=== PATIENT | male | born 1980 | race African-American/Black ===

== ENCOUNTER 2016-12-16 23:06 | Emergency (ER) | payer SELFPAY ==
--- NOTE | 2016-12-16 23:33 | ER Document Report ---
ED Extremity Problem, Lower - General Chief Complaint: Foot Injury Stated Complaint: RIGHT FOOT PAIN Time Seen by Provider: 12/16/16 23:32 Notes: The patient is a 36-year-old male who was kicking a punching bag earlier today and is complaining of right foot pain. He thinks he may have broken it. He is using crutches and an old walking boot prior to arrival. Patient denies numbness, tingling or open wounds. - Related Data Allergies/Adverse Reactions: amoxicillin Allergy (Verified 12/16/16 23:50) Past Medical History - General Information source: Patient - Social History Smoking Status: Unknown if Ever Smoked Family History: Reviewed & Not Pertinent Renal/ Medical History: Denies: Hx Peritoneal Dialysis Review of Systems - Review of Systems Notes: REVIEW OF SYSTEMS: CONSTITUTIONAL: -fevers, -chills EENT: -eye pain, -difficulty swallowing, -nasal congestion CARDIOVASCULAR:-chest pain, -syncope. RESPIRATORY: -cough, -SOB GASTROINTESTINAL: -abdominal pain, - nausea, -vomiting, -diarrhea GENITOURINARY: -dysuria, -hematuria MUSCULOSKELETAL: +right foot pain, -back pain, -neck pain SKIN: -rash or skin lesions. HEMATOLOGIC: -easy bruising or bleeding. LYMPHATIC: -swollen, enlarged glands. NEUROLOGICAL: -altered mental status or loss of consciousness, -headache, - neurologic symptoms PSYCHIATRIC: -anxiety, -depression. ALL OTHER SYSTEMS REVIEWED AND NEGATIVE. Physical Exam - Vital signs Vitals: Temp Pulse Resp BP Pulse Ox 97.4 F 77 18 156/93 H 97 12/16/16 23:11 12/16/16 23:11 12/16/16 23:11 12/16/16 23:11 12/16/16 23:11 - Notes Notes: PHYSICAL EXAMINATION: GENERAL: Well-appearing, well-nourished and in no acute distress. HEAD: Atraumatic, normocephalic. EYES: Pupils equal round and reactive to light, extraocular movements intact, sclera anicteric, conjunctiva are normal. ENT: nares patent, oropharynx clear without exudates. Moist mucous membranes. NECK: Normal range of motion, supple without lymphadenopathy LUNGS: Breath sounds clear to auscultation bilaterally and equal. No wheezes rales or rhonchi. HEART: Regular rate and rhythm without murmurs ABDOMEN: Soft, nontender, normoactive bowel sounds. No guarding, no rebound. No masses appreciated. EXTREMITIES: Mild tenderness and swelling of base of 2nd metatarsal. Normal range of motion, no pitting or edema. No cyanosis. NEUROLOGICAL: Cranial nerves grossly intact. Normal speech, normal gait. Normal sensory and motor exams. PSYCH: Normal mood, normal affect. SKIN: Warm, Dry, normal turgor, no rashes or lesions noted. Course - Re-evaluation Re-evalutation: Patient with small avulsion fracture of the second cuneiform. He already has crutches and a walking boot. Told him to follow-up with orthopedics for further evaluation and treatment. Will provide him with anti-inflammatories and return precautions. - Vital Signs Vital signs: Temp Pulse Resp BP Pulse Ox 97.4 F 77 18 156/93 H 97 12/16/16 23:11 12/16/16 23:11 12/16/16 23:11 12/16/16 23:11 12/16/16 23:11 - Diagnostic Test Radiology reviewed: Image reviewed, Reports reviewed Radiology results interpreted by me: Right foot x-ray: Mild soft tissue swelling tiny avulsion injury of the 2nd cuneiform. Discharge - Discharge Clinical Impression: Cuneiform fracture, foot Condition: Stable Disposition: HOME, SELF-CARE Additional Instructions: Fracture You have a fracture. The typical broken bone requires only protection and sufficient time for healing. "Setting" is necessary only if the bones are crooked or out of position. The physician will re-assess you periodically to make certain that the bone heals without complications. It's important that you follow the instructions given you. The initial treatment is immobilization, elevation of the injury, and cold packs. Not all fractures require a cast. Depending on the location and type of fracture, immobilization may consist of a splint, cast, sling, bulky dressing , or simply rest. The length of time required for healing depends on the location and type of fracture, and on the age of the patient. The treatment plan the physician has outlined for you is customized to your fracture and health condition. Call the doctor or return at once if pain becomes severe, or if severe swelling or numbness develop. Prescriptions: Acetaminophen with Codeine [Tylenol #3 Tablet] 1 each PO Q4HP PRN #10 tablet PRN Reason: Forms: Elevated Blood Pressure Referrals: MANINDER WILLS MD [ACTIVE STAFF] - Follow up as needed
--- NOTE | 2016-12-16 23:49 | RADIOLOGY REPORT (SQ) ---
EXAM DESCRIPTION: FOOT RIGHT COMPLETE COMPLETED DATE/TIME: 12/16/2016 11:38 pm REASON FOR STUDY: right foot injury COMPARISON: None. NUMBER OF VIEWS: Three views. TECHNIQUE: AP, lateral and oblique radiographic images acquired of the right foot. LIMITATIONS: None. FINDINGS: MINERALIZATION: Normal. BONES: There is a tiny avulsion injury of the 2nd cuneiform. Osseous excrescence in fragmentation of the 1st metatarsal head is consistent with bunion. JOINTS: No effusions. SOFT TISSUES: Mild soft tissue swelling is seen of the dorsal midfoot. OTHER: No other significant finding. IMPRESSION: Mild soft tissue swelling tiny avulsion injury of the 2nd cuneiform. TECHNICAL DOCUMENTATION: JOB ID: [id number] [employer]- All Rights Reserved
[2016-12-16] MEDS ORDERED: IBUPROFEN 600 MG TABLET PO ONE (23:58)
[2016-12-16] MEDS ORDERED: ACETAMINOPHEN WITH CODEINE #3 TABLET PO ONE (23:58)
[2016-12-17 00:23] VITALS: BP 121/90
== END 2016-12-17 00:21 | disposition home or self-care (01) ==
LOC: ER 23:06
DX: S92.241A Displaced fracture of medial cuneiform of right foot, initial encounter for closed fracture (principal); W22.8XXA Striking against or struck by other objects, initial encounter
CPT/HCPCS: 99283